=== PATIENT | male | born 1945 | race Asian ===

== ENCOUNTER 2018-01-13 17:32 | Inpatient (IN) | payer MEDICAID, MEDICARE ==
[~2018-01-13] VITALS: Ht 177.8 cm; Wt 85.3 kg
--- NOTE | 2018-01-13 17:38 | NUR ---
PT ROOMED IN ED BED 8
[2018-01-13 17:39] VITALS: BP 142/61
--- NOTE | 2018-01-13 17:42 | NUR ---
PT BIBA FROM [facility] WITH C.O ABNORMAL XRAY. APILA MASS POSSIBLE ON R CHEST. 8/10 RIB PAIN. NO OTHER COMPLAINTS, DENIES CP AND SOB. VSS
--- NOTE | 2018-01-13 19:17 | NUR ---
gave report to Brenda GILLESPIE for continuation of care
--- NOTE | 2018-01-13 19:24 | NUR ---
pt with possible surgical incision to rt lateral chest, pt arrived with dressing over site, no active bleeding/ signs of infection noted. all lung sounds cbta, no respiratory distress noted. Addendum: 01/13/18 at 2317 by DREA PT HAS LEFT LEG PROSTHESIS.
[2018-01-13] MEDS ORDERED: NACL 0.9% 1,000 ML IV ONE (19:29)
--- NOTE | 2018-01-13 19:56 | NUR ---
EKG PERFORMED AT BEDSIDE. PT COVERED IN GOWN DURING PROCEDURE. NORMAL SINUS RHYTHM
[2018-01-13 20:06] LABS: BASOPHILS % (AUTO) 0.1 % (0.0-2.0); EOSINOPHILS # (AUTO) 0.1 K/uL (0-0.4); EOSINOPHILS % (AUTO) 2.5 % (0.0-4.0); HEMATOCRIT 25.4 % (36-52); HEMOGLOBIN 8.5 g/dL (12.0-18.0); LYMPHOCYTES # (AUTO) 1.6 K/uL (2.0-11.5); LYMPHOCYTES % (AUTO) 28.6 % (20.5-51.1); MEAN CORPUSCULAR HEMOGLOBIN 30 pg (27-31); MEAN CORPUSCULAR HGB CONC 33 g/dL (33-37); MEAN CORPUSCULAR VOLUME 91.1 fL (80-94); MONOCYTES # (AUTO) 0.7 K/uL (0.8-1.0); MONOCYTES % (AUTO) 12.9 % (1.7-9.3); NEUTROPHILS # (AUTO) 3.1 K/uL (1.8-7.7); NEUTROPHILS % (AUTO) 55.9 % (42.2-75.2); PLATELET COUNT (AUTO) 308 K/uL (140-450); RED BLOOD CELL COUNT(AUTO) 2.79 MIL/uL (4.20-6.10); RED CELL DISTRIBUTION WIDTH 15.1 % (11.6-13.7); WHITE BLOOD COUNT (AUTO) 5.6 K/uL (4.8-10.8)
--- NOTE | 2018-01-13 20:10 | NUR ---
PT TAKEN TO CT SCAN
[2018-01-13 20:27] LABS: PROTHROMBIN TIME 10.9 secs (10.8-13.4)
[2018-01-13 20:30] LABS: ANION GAP 9.7 (8-16); CARBON DIOXIDE 28.8 mmol/L (21-32); CHLORIDE 103 mmol/L (98-107); CREATININE 1.1 mg/dL (0.7-1.3); GLUCOSE 277 mg/dL (74-106); POTASSIUM 4.5 mmol/L (3.5-5.1); SODIUM SERUM 137 mmol/L (136-145); UREA NITROGEN, BLOOD 21 mg/dL (7-18)
[2018-01-13 20:36] LABS: ALBUMIN 3.2 g/dL (3.4-5.0); ASPARTATE AMINOTRANSFERASE 10 U/L (15-37); LIPASE 84 U/L (73-393); TOTAL BILIRUBIN 0.4 mg/dL (0.0-1.0)
--- NOTE | 2018-01-13 20:36 | NUR ---
PT RETURNED FROM CT
[2018-01-13 20:41] LABS: APPEARANCE,URINE CLEAR (CLEAR); BILIRUBIN,URINE NEGATIVE (NEGATIVE); BLOOD, URINE NEGATIVE (NEGATIVE); COLOR,URINE YELLOW (YELLOW); LEUKOCYTE ESTERASE ,URINE NEGATIVE (NEGATIVE); NITRITE, URINE NEGATIVE (NEGATIVE); PH,URINE 6.5 (5.0-9.0); UGLUCOSE 2+ (NEGATIVE)
[2018-01-13] MEDS ORDERED: ZOLPIDEM 5 MG TAB PO PRN (22:50)
[2018-01-13] MEDS ORDERED: ONDANSETRON 4 MG/2 ML VIAL IM/IVP PRN (22:50)
[2018-01-13] MEDS ORDERED: DOCUSATE SODIUM 100 MG GELCAP PO PRN (22:50)
[2018-01-13] MEDS ORDERED: MORPHINE SULFATE 2 MG/ML SYR IVP PRN (22:50)
[2018-01-13] MEDS ORDERED: ACETAMINOPHEN 325 MG TAB PO PRN (22:50)
[2018-01-13] MEDS ORDERED: LORazepam 2 MG/ML VIAL IM/IVP PRN (22:50)
--- NOTE | 2018-01-13 23:00 | NUR ---
PT REFUSES TO TAKE PANTS AND SHOES ON LEFT FOOT OFF. PT ALSO REFUSES TO PUT SOCKS ON AT THIS TIME
--- NOTE | 2018-01-13 23:21 | NUR ---
Patient will be admitted to care of GOVIL. Admited to TELE. Will go to room 106A Belongings list completed. Report to ANDREIA GILLESPIE.
[2018-01-13] MEDS ORDERED: ATOR20TA PO (23:30)
[2018-01-13] MEDS ORDERED: BACL10TA4 PO (23:30)
[2018-01-13] MEDS ORDERED: LEVEMIR SUBQ (23:30)
[2018-01-13] MEDS ORDERED: HUM SUBQ (23:30)
[2018-01-13] MEDS ORDERED: LISI-424 PO (23:30)
[2018-01-13] MEDS ORDERED: GABA300C PO (23:30)
[2018-01-13] MEDS ORDERED: DOCU-299 PO (23:30)
[2018-01-13] MEDS ORDERED: CARV3.12 PO (23:30)
--- NOTE | 2018-01-13 23:32 | NUR ---
RECEIVED REPORT FROM SEMICONDUCTOR PROCESSING TECHNICIAN FOR CONTINUITY OF CARE. PT IS A/OX4, ON ROOM AIR, SPEAKS MARITZA. PT IS ABLE TO MAKE NEEDS KNOWN, ABLE TO FOLLOW COMMANDS. 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 PT HAS SKIN TEARING/PEELING ON LEFT HAND, A DRY SCAB ON RIGHT ELBOW, AND A HEALING INCISION ON RIGHT CHEST BY RIBS. PT HAS A 18G IV TO LEFT AC, ASYMPTOMATIC. DISCUSSED PLAN OF CARE WITH PT, PT VERBALIZED UNDERSTANDING. VITAL SIGNS WITHIN NORMAL LIMITS. PT STABLE, NO SIGNS OF DISTRESS NOTED AT THIS TIME. BED IN LOWEST POSITION, BED ALARM ON. CALL LIGHT WITHIN REACH, WILL CONTINUE TO MONITOR. USED BRANCH ACCOUNT EXECUTIVE #[id number] TO TRANSLATE BETWEEN PT AND I.
[2018-01-13] MEDS ORDERED: DEXTROSE 50% 50 ML SYR IVP PRN (23:35)
[2018-01-13] MEDS: NACL 0.9% 1,000 ML IV SCH (23:40)
[2018-01-14] VITALS: BP 135/57
[2018-01-14] MEDS ORDERED: ATORVASTATIN 20 MG TAB PO SCH
[2018-01-14] MEDS ORDERED: INSULIN LANTUS 100 UNITS/ML 10 ML VIAL SUBQ SCH
[2018-01-14 00:28] LABS: PROTHROMBIN TIME 10.8 secs (10.8-13.4)
[2018-01-14 00:37] LABS: BARBITURATE, URINE NEG. ng/ml (NEG <=200); BENZODIAZEPINE, URINE NEG. ng/mL (NEG <=200); CANNABINOID, URINE NEG. ng/mL (NEG <=50); COCAINE, URINE NEG. ng/mL (NEG <=300); OPIATE, URINE NEG. ng/mL (NEG <=2000); PHENCYCLIDINE SCREEN,URINE NEG. ng/mL (NEG <=25)
[2018-01-14 00:46] LABS: FREE T4 (FREE THYROXINE) 1.35 ng/dL (0.76-1.46); MAGNESIUM 1.7 mg/dL (1.8-2.4); PHOSPHORUS 3.1 mg/dL (2.5-4.9); THYROID STIMULATING HORMONE 1.27 uIU/mL (0.34-3.74)
[2018-01-14] MEDS: HYDROcodone/APAP 5/325 MG 1 TAB TAB PO PRN ×3 (01:05→17:15)
--- NOTE | 2018-01-14 02:15 | NUR ---
PT RESTING, STABLE, NO SIGNS OF DISTRESS NOTED AT THIS TIME. BED IN LOWEST POSITION, BED ALARM ON. CALL LIGHT WITHIN REACH, WILL CONTINUE TO MONITOR.
[2018-01-14 04:00] VITALS: BP 111/60
--- NOTE | 2018-01-14 04:00 | NUR ---
VITAL SIGNS WITHIN NORMAL LIMITS. PT STABLE, NO SIGNS OF DISTRESS NOTED AT THIS TIME. BED IN LOWEST POSITION, BED ALARM ON. CALL LIGHT WITHIN REACH, WILL CONTINUE TO MONITOR.
--- NOTE | 2018-01-14 04:15 | NUR ---
USED WOOD POLE TREATER #[id number] AGAIN TO GET CONSENT FROM PT TO OBTAIN RECORDS FROM [facility]. ALSO TO OBTAIN CONSENT FOR CT OF CHEST WITH CONTRAST. WENT OVER THE LIST OF QUESTIONS ON CT CONSENT AND PT ANSWERED. THERE DOES NOT SEEM TO BE ANY CONTRAINDICATION.
--- NOTE | 2018-01-14 05:55 | NUR ---
PT LEFT TO CT IN WHEELCHAIR, PT STABLE.
--- NOTE | 2018-01-14 06:20 | NUR ---
PT RETURNED FROM CT IN WHEELCHAIR. PT STABLE, NO SIGNS OF DISTRESS NOTED.
[2018-01-14] MEDS: INSULIN LISPRO SLIDING SCALE 100 UNITS/ML VIAL SUBQ PRN ×4 (06:49→20:52)
[2018-01-14] MEDS: BLOOD GLUCOSE MONITORING 1 DEV DEV FS SCH ×4 (06:49→20:45)
[2018-01-14 07:04] LABS: CREATININE 1.1 mg/dL (0.7-1.3); GLUCOSE 329 mg/dL (74-106); UREA NITROGEN, BLOOD 18 mg/dL (7-18)
--- NOTE | 2018-01-14 07:05 | NUR ---
PT REPORT OBTAINED AT BEDSIDE. PT IS AWAKE, A&O, NO S/S OF DISTRESS NOTED. PT IS ON ROOM AIR. LEFT BKA NOTED; PROSTHESIS AT BEDSIDE. BED IN LOW POSITION, CALL LIGHT WITHIN REACH. WILL CONTINUE TO MONITOR.
[2018-01-14 07:13] LABS: CHOL/HDL RATIO 3.2 (1-4.5); PHOSPHORUS 3.1 mg/dL (2.5-4.9)
[2018-01-14 07:21] LABS: HEMATOCRIT 25.2 % (36-52); HEMOGLOBIN 8.2 g/dL (12.0-18.0); MEAN CORPUSCULAR HEMOGLOBIN 30 pg (27-31); MEAN CORPUSCULAR VOLUME 93.4 fL (80-94); WHITE BLOOD COUNT (AUTO) 5.4 K/uL (4.8-10.8)
[2018-01-14 07:22] LABS: BASOPHILS % (AUTO) 0.5 % (0.0-2.0); EOSINOPHILS # (AUTO) 0.1 K/uL (0-0.4); EOSINOPHILS % (AUTO) 2.5 % (0.0-4.0); LYMPHOCYTES # (AUTO) 1.7 K/uL (2.0-11.5); LYMPHOCYTES % (AUTO) 30.6 % (20.5-51.1); MEAN CORPUSCULAR HGB CONC 33 g/dL (33-37); MONOCYTES # (AUTO) 0.7 K/uL (0.8-1.0); MONOCYTES % (AUTO) 13.3 % (1.7-9.3); NEUTROPHILS # (AUTO) 2.9 K/uL (1.8-7.7); NEUTROPHILS % (AUTO) 53.1 % (42.2-75.2); PLATELET COUNT (AUTO) 321 K/uL (140-450); RED CELL DISTRIBUTION WIDTH 14.5 % (11.6-13.7)
[2018-01-14 07:24] LABS: ANION GAP 8.3 (8-16); CARBON DIOXIDE 27.4 mmol/L (21-32); CHLORIDE 103 mmol/L (98-107); POTASSIUM 4.7 mmol/L (3.5-5.1); SODIUM SERUM 134 mmol/L (136-145)
[2018-01-14 07:37] LABS: MAGNESIUM 1.7 mg/dL (1.8-2.4)
--- NOTE | 2018-01-14 07:37 | NUR ---
PATIENT HAS BEEN SCREENED AND CATEGORIZED MODERATE RISK. PATIENT WILL BE SEEN WITHIN 3-5 DAYS OF ADMISSION. 01/16- [address], [facility]
--- NOTE | 2018-01-14 07:47 | NUR ---
ENDORSED PT TO DAY SHIFT RN FOR CONTINUITY OF CARE. PT IN STABLE CONDITION.
[2018-01-14 08:00] VITALS: BP 148/58
--- NOTE | 2018-01-14 08:00 | NUR ---
BLUE PHONE USED TO EXPLAIN TO PATIENT HOW TO USE THE CALL LIGHT, AND TO NOTIFY NURSE IF NEEDED. SHAFT HEADMAN ID: [id number].
--- NOTE | 2018-01-14 08:45 | NUR ---
ASSISTED PATIENT TO THE BATHROOM. PATIENT HAD A BM. SAMPLE FOR STOOL OB SENT TO THE LAB
[2018-01-14] MEDS: GABAPENTIN 300 MG CAP PO SCH ×3 (09:31→17:12)
[2018-01-14] MEDS: BACLOFEN 10 MG TAB PO SCH ×3 (09:31→17:12)
[2018-01-14] MEDS: CARVEDILOL 3.125 MG TAB PO SCH ×2 (09:32→20:45)
[2018-01-14] MEDS: DOCUSATE SODIUM 100 MG GELCAP PO SCH ×2 (09:33→20:49)
[2018-01-14] MEDS: LISINOPRIL 5 MG TAB PO SCH (09:34)
[2018-01-14] MEDS: INSULIN LANTUS 100 UNITS/ML 10 ML VIAL SUBQ SCH (09:40)
[2018-01-14 12:00] VITALS: BP 134/62
--- NOTE | 2018-01-14 14:38 | NUR ---
PT IS CURRENTLY SLEEPING. NO S/S OF DISTRESS.
[2018-01-14] MEDS: NACL 0.9% 1,000 ML IV SCH (15:28)
[2018-01-14 16:00] VITALS: BP 114/46
--- NOTE | 2018-01-14 19:33 | NUR ---
RECEIVED REPORT FROM DAY SHIFT NURSE AT PT BEDSIDE. PT IN STABLE CONDITION. PT IS A/O X4. IV ACCESS IN L AC 18G WITH IVF RUNNING PER ORDERS. IV IS PATENT AND INTACT. PT L BKA AND PROSTHETIC AT BEDSIDE. PT HAS NO C/O PAIN AT THIS TIME. BED IS LOCKED, LOW POSITION WITH SIDE RAILS UP X2. BOARD UPDATED. CALL LIGHT IS WITHIN REACH. WILL CONTINUE TO MONITOR PT.
--- NOTE | 2018-01-14 19:33 | NUR ---
PT REPORT GIVEN AT BEDSIDE. PT ENDORSED TO NOC SHIFT IN A STABLE CONDITION, NO S/S OF DISTRESS. PT IS ON ROOM AIR, IV PATENT. BED IN LOW POSITION AND CALL LIGHT WITHIN REACH.
[2018-01-14 20:00] VITALS: BP 85/40
[2018-01-14] MEDS: ATORVASTATIN 20 MG TAB PO SCH (20:48)
--- NOTE | 2018-01-14 20:52 | NUR ---
SCHEDULED MEDICATION ADMINISTERED.COREG HELD D/T DECREASED BP. BS CHECKED, 164. COVERAGE GIVEN PER MD ORDERS. PT TOLERATED WELL. WILL CONTINUE TO MONITOR.
--- NOTE | 2018-01-14 23:00 | NUR ---
PT ASLEEP IN BED. NO SIGNS OF DISTRESS. WILL CONTINUE TO MONITOR.
[2018-01-15] VITALS: BP 109/43
--- NOTE | 2018-01-15 01:11 | NUR ---
PT ASLEEP IN BED. NO SIGNS OR SYMPTOMS OF DISTRESS. WILL CONTINUE TO MONITOR.
[2018-01-15 04:00] VITALS: BP 131/50
--- NOTE | 2018-01-15 04:00 | NUR ---
NO CHANGE IN CONDITION. WILL CONTINUE TO MONITOR PT.
[2018-01-15] MEDS: BLOOD GLUCOSE MONITORING 1 DEV DEV FS SCH ×4 (06:01→21:01)
[2018-01-15] MEDS: INSULIN LISPRO SLIDING SCALE 100 UNITS/ML VIAL SUBQ PRN ×4 (06:06→20:59)
--- NOTE | 2018-01-15 06:06 | NUR ---
BS CHECKED, 167. INSULIN COVERAGE GIVEN PER MD ORDERS. WILL CONTINUE TO MONITOR PT.
[2018-01-15 06:49] LABS: BASOPHILS % (AUTO) 0.2 % (0.0-2.0); EOSINOPHILS # (AUTO) 0.2 K/uL (0-0.4); EOSINOPHILS % (AUTO) 3.9 % (0.0-4.0); HEMATOCRIT 25.4 % (36-52); HEMOGLOBIN 8.4 g/dL (12.0-18.0); LYMPHOCYTES # (AUTO) 1.6 K/uL (2.0-11.5); LYMPHOCYTES % (AUTO) 29.2 % (20.5-51.1); MEAN CORPUSCULAR HEMOGLOBIN 30 pg (27-31); MEAN CORPUSCULAR HGB CONC 33 g/dL (33-37); MEAN CORPUSCULAR VOLUME 91.8 fL (80-94); MONOCYTES # (AUTO) 0.6 K/uL (0.8-1.0); MONOCYTES % (AUTO) 11.8 % (1.7-9.3); NEUTROPHILS % (AUTO) 54.9 % (42.2-75.2); PLATELET COUNT (AUTO) 267 K/uL (140-450); RED BLOOD CELL COUNT(AUTO) 2.77 MIL/uL (4.20-6.10); WHITE BLOOD COUNT (AUTO) 5.5 K/uL (4.8-10.8)
--- NOTE | 2018-01-15 07:10 | NUR ---
RECEIVED PT REPORT AT BEDSIDE FROM STEMHOLE BORER AND TOPPER NURSE. PT IS AWAKE, A&O, NO S/S OF DISTRESS NOTED. PT IS ON ROOM AIR. LEFT BKA PROSTHESIS AT BEDSIDE. BED IN LOW POSITION, CALL LIGHT WITHIN REACH. WILL CONTINUE TO MONITOR.
--- NOTE | 2018-01-15 07:20 | NUR ---
ENDORSED PT TO DAY SHIFT NURSE FOR CONTINUITY OF CARE. PT IN STABLE CONDITION.
[2018-01-15 07:35] LABS: MAGNESIUM 1.8 mg/dL (1.8-2.4); PHOSPHORUS 4.2 mg/dL (2.5-4.9)
[2018-01-15 07:36] VITALS: BP 120/75
[2018-01-15 07:38] LABS: ANION GAP 9.3 (8-16); CARBON DIOXIDE 29.5 mmol/L (21-32); CHLORIDE 105 mmol/L (98-107); GLUCOSE 163 mg/dL (74-106); POTASSIUM 4.8 mmol/L (3.5-5.1); SODIUM SERUM 139 mmol/L (136-145); UREA NITROGEN, BLOOD 18 mg/dL (7-18)
[2018-01-15] MEDS: NACL 0.9% 1,000 ML IV SCH (08:08)
[2018-01-15 08:09] LABS: T4 (THYROXINE) 8.8 ug/dL (4.5-12.0)
--- NOTE | 2018-01-15 08:15 | NUR ---
Manager Area Notes: I attempted to meet with patient for screen patient was sleeping and did not want to speak with HOSPICE CARE SALES CONSULTANT. Stated in broken Croatian " I have no problem, NO Croatian " These ghost writer offer to provide a blue phone for language line services, Patient declined and turn back to sleep.
[2018-01-15] MEDS: DOCUSATE SODIUM 100 MG GELCAP PO SCH ×2 (08:42→20:49)
[2018-01-15] MEDS: LISINOPRIL 5 MG TAB PO SCH (08:43)
[2018-01-15] MEDS: CARVEDILOL 3.125 MG TAB PO SCH ×2 (08:43→21:00)
[2018-01-15] MEDS: HYDROcodone/APAP 5/325 MG 1 TAB TAB PO PRN ×2 (08:44→21:05)
[2018-01-15] MEDS: GABAPENTIN 300 MG CAP PO SCH ×3 (08:44→17:15)
[2018-01-15] MEDS: BACLOFEN 10 MG TAB PO SCH ×3 (08:44→17:15)
[2018-01-15] MEDS: INSULIN LANTUS 100 UNITS/ML 10 ML VIAL SUBQ SCH (08:46)
[2018-01-15 09:32] LABS: TRANSFERRIN 265 mg/dL (200-370)
[2018-01-15 16:00] VITALS: BP 96/38
--- NOTE | 2018-01-15 17:00 | NUR ---
PT IS AWAKE AND ALERT IN BED, TALKING ON THE PHONE. NO C/O PAIN OR DISCOMFORT. BED IN LOW POSITION, CALL LIGHT WITHIN REACH.
--- NOTE | 2018-01-15 19:15 | NUR ---
PT REPORT GIVEN AT BEDSIDE. PT ENDORSED IN STABLE CONDITION.
--- NOTE | 2018-01-15 19:16 | NUR ---
RECEIVED PT FROM SHAHLA RN PT AAOX4 NOT SOB NOTED IV ON LEFT ARM INFUSING WELL PT HAS A PROSTHESIS AT BED SIDE FOR HIS LEFT BKA INITIAL ASSESSMENT DONE
[2018-01-15 20:00] VITALS: BP 108/78
[2018-01-15] MEDS: ATORVASTATIN 20 MG TAB PO SCH (20:50)
--- NOTE | 2018-01-15 21:00 | NUR ---
DR CANDELARIA IS HERE AND SEE THE PT
--- NOTE | 2018-01-15 21:24 | NUR ---
BLOOD SUGAR 273 COVERAGE WITH 6 UNITS SUB Q HUMALOG FOLLOW PROTOCOL
[2018-01-16] VITALS: BP 101/43
--- NOTE | 2018-01-16 | NUR ---
PT SLEEPING WELL NOT SOB NOTED REMAIN STABLE
[2018-01-16] MEDS: NACL 0.9% 1,000 ML IV SCH ×2 (00:48→02:33)
--- NOTE | 2018-01-16 04:00 | NUR ---
SPONGE BATH GIVEN LINEN CHANGED IV ON LEFT AC INFUSING WELL PT GETTING SLEEP DENIES ANY PAIN
[2018-01-16] MEDS: BLOOD GLUCOSE MONITORING 1 DEV DEV FS SCH ×3 (05:57→17:08)
[2018-01-16] MEDS: INSULIN LISPRO SLIDING SCALE 100 UNITS/ML VIAL SUBQ PRN ×3 (06:00→16:55)
--- NOTE | 2018-01-16 06:26 | NUR ---
BLOOD SUGAR TEST 171 COVERAGE WITH 2 UNITS SUBQ HUMAL;OG FOLLOW PROTOCOL DENIES ANY PAIN OR DISCOMFORT
--- NOTE | 2018-01-16 07:20 | NUR ---
RECEIVED REPORT FROM NIGHTSHIFT NURSE AT BEDSIDE. PATIENT IS AWAKE AT THIS TIME. PATIENT SHOWS NO SIGNS OF DISTRESS OR PAIN. PATIENT HAS AN IV NOTED ON HIS LEFT AC RUNNING NORMAL SALINE. UPDATED BOARD IN PATIENT'S ROOM. PATIENT HAS PROSTHETIC LEG AT BEDSIDE. PATIENT HAS LEFT BELOW KNEE AMPUTATION. APPROPRIATE SIGNS PLACED OUTSIDE OF ROOM. CALL LIGHT WITHIN REACH OF PATIENT. WILL CONTINUE TO MONITOR PATIENT.
[2018-01-16 08:00] VITALS: BP 133/74
[2018-01-16] MEDS: DOCUSATE SODIUM 100 MG GELCAP PO SCH (09:15)
[2018-01-16] MEDS: CARVEDILOL 3.125 MG TAB PO SCH (09:17)
[2018-01-16] MEDS: BACLOFEN 10 MG TAB PO SCH ×3 (09:19→17:00)
[2018-01-16] MEDS: LISINOPRIL 5 MG TAB PO SCH (09:20)
[2018-01-16] MEDS: GABAPENTIN 300 MG CAP PO SCH ×3 (09:20→17:00)
[2018-01-16] MEDS: HYDROcodone/APAP 5/325 MG 1 TAB TAB PO PRN (09:22)
[2018-01-16] MEDS: INSULIN LANTUS 100 UNITS/ML 10 ML VIAL SUBQ SCH (09:35)
--- NOTE | 2018-01-16 10:20 | NUR ---
PATIENT RESTING AT THIS TIME. NO DISTRESS NOTED. WILL CONTINUE TO MONITOR PATIENT.
[2018-01-16] MEDS ORDERED: ACET-2869 PO (11:00)
[2018-01-16 12:05] LABS: BASOPHILS % (AUTO) 0.2 % (0.0-2.0); EOSINOPHILS # (AUTO) 0.1 K/uL (0-0.4); EOSINOPHILS % (AUTO) 3.4 % (0.0-4.0); HEMATOCRIT 27.2 % (36-52); HEMOGLOBIN 8.8 g/dL (12.0-18.0); LYMPHOCYTES # (AUTO) 1.2 K/uL (2.0-11.5); LYMPHOCYTES % (AUTO) 28.3 % (20.5-51.1); MEAN CORPUSCULAR HEMOGLOBIN 30 pg (27-31); MEAN CORPUSCULAR HGB CONC 32 g/dL (33-37); MONOCYTES # (AUTO) 0.5 K/uL (0.8-1.0); MONOCYTES % (AUTO) 11.6 % (1.7-9.3); NEUTROPHILS # (AUTO) 2.5 K/uL (1.8-7.7); NEUTROPHILS % (AUTO) 56.5 % (42.2-75.2); PLATELET COUNT (AUTO) 256 K/uL (140-450); RED BLOOD CELL COUNT(AUTO) 2.92 MIL/uL (4.20-6.10); RED CELL DISTRIBUTION WIDTH 15.3 % (11.6-13.7); WHITE BLOOD COUNT (AUTO) 4.3 K/uL (4.8-10.8)
--- NOTE | 2018-01-16 12:18 | NUR ---
Unix Manager Note: I faxed patient's medical information to [facility]
[2018-01-16 12:56] LABS: ANION GAP 12.2 (8-16); CARBON DIOXIDE 26.5 mmol/L (21-32); CHLORIDE 104 mmol/L (98-107); CREATININE 1.1 mg/dL (0.7-1.3); POTASSIUM 4.7 mmol/L (3.5-5.1); SODIUM SERUM 138 mmol/L (136-145); UREA NITROGEN, BLOOD 18 mg/dL (7-18)
[2018-01-16 13:01] LABS: GLUCOSE 408 mg/dL (74-106)
--- NOTE | 2018-01-16 13:30 | NUR ---
Air Drill Operator Note: Per Climatologist Evette, patient is not on isolation. Per Ashli from [facility] , patient may return to room 29A anytime today, accepting physician is Dr. Benson, Climatologist Evette aware.
--- NOTE | 2018-01-16 13:43 | NUR ---
PATIENT IS ASLEEP AT THIS TIME. WILL CONTINUE TO MONITOR PATIENT.
--- NOTE | 2018-01-16 15:30 | NUR ---
PATIENT CAN GO TO ROOM 29A UNDER DR QUESADA. I CALLED AND THE COST IS $66.50 I CALLED THE FAMILY AND SPOKE WITH LESLY. HE SAID HE CANNOT PAY. I CALLED [facility] AND SET UP W/C TRANSPORT . THEY CAN PC MAINTENANCE TECHNICIAN THE PATIENT AT 5:30 P.M. MATT GILLESPIETRIMMER SAWYER NURSE AWARE.
--- NOTE | 2018-01-16 16:06 | NUR ---
SPOKE TO PATIENT'S SON LESLY VELASQUEZ. PATIENT'S SON UNDERSTAND THAT PATIENT IS LEAVING TO [facility] TODAY.
[2018-01-16 16:07] VITALS: BP 108/45
--- NOTE | 2018-01-16 17:20 | NUR ---
GAVE REPORT TO CATHERINE CAMPBELL AT [facility]. PROVIDED CALL BACK NUMBER FOR ADDITIONAL QUESTIONS
--- NOTE | 2018-01-16 18:20 | NUR ---
PATIENT'S DAUGHTER ABLE TO HELP TRANSLATE DISCHARGE INSTRUCTIONS. TRIED BLUE TRANSLATING PHONE BUT NO RESPONSE. PATIENT GATHERED ALL BELONGINGS. DISCONTINUED PATIENT'S IV LINE WITH TIP STILL INTACT. REMOVED IDENTIFICATION BANDS. PATIENT LEFT WITH PREMI[facility] EMPLOYEE IN STABLE CONDITION.
[2018-01-17 06:27] LABS: FERRITIN 112 ng/mL (30-400); FOLIC ACID > 20.00 ng/mL (>3.0)
== END 2018-01-16 18:20 | DRG 342 ==
LOC: MED 17:32 → EDBD 17:32 → MTU 22:52
PROVIDERS: ADMIT Family Medicine; ATTEND Family Medicine
DX: M84.48XA Pathological fracture, other site, initial encounter for fracture (principal); E43 Unspecified severe protein-calorie malnutrition; E11.40 Type 2 diabetes mellitus with diabetic neuropathy, unspecified; E11.51 Type 2 diabetes mellitus with diabetic peripheral angiopathy without gangrene; I48.91 Unspecified atrial fibrillation; D64.9 Anemia, unspecified; I45.10 Unspecified right bundle-branch block; R91.8 Other nonspecific abnormal finding of lung field; I10 Essential (primary) hypertension; I25.10 Atherosclerotic heart disease of native coronary artery without angina pectoris; K59.00 Constipation, unspecified; E78.5 Hyperlipidemia, unspecified; Z79.4 Long term (current) use of insulin; Z89.512 Acquired absence of left leg below knee; Z79.899 Other long term (current) drug therapy; Z86.73 Personal history of transient ischemic attack (TIA), and cerebral infarction without residual deficits; Z68.27 Body mass index [BMI] 27.0-27.9, adult; S06.300D Unspecified focal traumatic brain injury without loss of consciousness, subsequent encounter; W18.30XD Fall on same level, unspecified, subsequent encounter
CPT/HCPCS: 36415; 70450; 71045; 71250; 71260; 80048; 80053; 80305; 81003; 82140; 82150; 82272; 82607; 82728; 82746; 82948; 83036; 83540; 83605; 83690; 83735; 83880; 84100; 84436; 84439; 84443; 84484; 85025; 85045; 85610; 85730; 87040; 87081; 87086; 93005; 96360; 99285; C1758; J1644; J1815; J7030; Q0092